=== PATIENT | male | born 1975 | race Caucasian/White ===

== ENCOUNTER 2016-06-08 19:38 | Emergency (ER) | payer BC ==
[2016-06-08 19:41] VITALS: BMI 24.9
[2016-06-08 19:45] VITALS: RESP 18
[2016-06-08 20:04] LABS: URINE BILIRUBIN NEGATIVE (NEGATIVE); URINE BLOOD SMALL (NEGATIVE); URINE GLUCOSE (UA) NEGATIVE (NEGATIVE); URINE KETONE 15 mg/dL (NEGATIVE); URINE LEUKOCYTE ESTERASE NEGATIVE Leu/uL (NEGATIVE); URINE PROTEIN NEGATIVE mg/dL (<30 mg/dL); URINE UROBILINOGEN 0.2 E.U./dL (<1 E.U./dL)
[2016-06-08] MEDS ORDERED: Morphine 2 mg/ml ISec IVP STA (20:06)
[2016-06-08 20:13] LABS: URINE APPEARANCE CLEAR (CLEAR); URINE COLOR LIGHT YELLOW (YELLOW)
[2016-06-08] MEDS ORDERED: Morphine 4 mg/ml ISec IVP STA (20:16)
[2016-06-08 20:18] LABS: URINE BACTERIA FEW (NEG); URINE WBC 0 - 2 /hpf (0-6)
[2016-06-08] MEDS ORDERED: Sodium Chloride 0.9% 1,000 ML IV STA (20:19)
--- NOTE | 2016-06-08 20:29 | ED PDOC ---
Arrival/HPI - General Historian: Patient - History of Present Illness Time/Duration: < week Symptom Course: Worsening Quality: Stabbing Severity Level: 8 <Beverley Watkins - Last Filed: 06/08/16 23:06> <Eric Tobin - Last Filed: 06/08/16 23:23> - General Chief Complaint: Back Pain Time Seen by Provider: 06/08/16 19:44 - History of Present Illness Narrative History of Present Illness (Text): 06/08/16 20:21 40 year old male with past medical history of hyperlipidemia presents to [facility] complaining of right flank pain. Patient report the flank pain, followed by bloody urine which all started on 06/02. Patient went to his PMD and was given Flomax and sent for CT scan. Patient's bloody urine resolved soon after but the pain continued. Patient's pain became worse on 06/06 where patient went to an urgent care center and received a shot of pain medication, which relieved his pain temporarily. This morning patient's pain returned. He also complains of feeling nauseous started today. Patient describes the pain as sharp pain, rates it 8/10 in intensity, radiates from right flank to right lower abdomen. Denies headache, weakness, fever, chills, shortness of breath, chest pain, vomiting, or diarrhea. (Beverley Watkins) Past Medical History - Provider Review Nursing Documentation Reviewed: Yes - Psychiatric Hx Substance Use: No <Beverley Watkins - Last Filed: 06/08/16 23:06> Family/Social History Family/Social History: Hypertension Smoking Status: n Hx Alcohol Use: No Hx Substance Use: No <Beverley Watkins - Last Filed: 06/08/16 23:06> Allergies/Home Meds <Beverley Watkins - Last Filed: 06/08/16 23:06> <Eric Tobin - Last Filed: 06/08/16 23:23> Allergies/Adverse Reactions: Allergies No Known Allergies Allergy (Verified 06/08/16 19:41) Review of Systems - Review of Systems Constitutional: Normal. absent: Fatigue, Fevers Eyes: Normal. absent: Vision Changes, Photophobia ENT: Normal. absent: Hearing Changes, TMJ Pain Respiratory: Normal. absent: SOB, Cough Cardiovascular: Normal. absent: Chest Pain, Edema, Syncope Gastrointestinal: Abdominal Pain (right flank to right lower abdominal pain) Genitourinary Male: Hematuria Musculoskeletal: Normal. absent: Back Pain Skin: Normal. absent: Rash, Pruritis Neurological: Normal. absent: Headache, Dizziness Psychiatric: Normal. absent: Anxiety, Depression <RolandWilversusi - Last Filed: 06/08/16 23:06> Physical Exam Vital Signs Reviewed: Yes Temperature: Afebrile Blood Pressure: Normal Pulse: Regular Respiratory Rate: Normal Appearance: Positive for: Non-Toxic, Uncomfortable Pain Distress: Moderate Mental Status: Positive for: Alert and Oriented X 3 - Systems Exam Head: Present: Atraumatic, Normocephalic Conjunctiva: Present: Normal Mouth: Present: Moist Mucous Membranes Nose (External): Present: Atraumatic Respiratory/Chest: Present: Clear to Auscultation, Good Air Exchange. No: Respiratory Distress, Accessory Muscle Use, Wheezes Cardiovascular: Present: Regular Rate and Rhythm, Normal S1, S2. No: Murmurs Abdomen: Present: Tenderness (Right lower quadrant) Genitourinary Male: Present: Other (right groin tenderness) Back: No: CVA Tenderness Upper Extremity: Present: Normal Inspection. No: Cyanosis, Edema Lower Extremity: Present: Normal Inspection. No: Edema Neurological: Present: GCS=15, CN II-XII Intact, Speech Normal Skin: Present: Warm, Dry, Normal Color. No: Rashes Psychiatric: Present: Alert, Oriented x 3, Normal Insight, Normal Concentration <RolandBeverley - Last Filed: 06/08/16 23:06> - Systems Exam Abdomen: Present: Normal Bowel Sounds. No: Tenderness, Distention, Peritoneal Signs, Rebound, Guarding Back: Present: Normal Inspection. No: CVA Tenderness <Eric Tobin L - Last Filed: 06/08/16 23:23> Vital Signs Temp Pulse Resp BP Pulse Ox 06/08/16 22:21 72 18 128/74 99 06/08/16 19:41 99.3 F 77 18 138/78 99 Medical Decision Making <Beverley Watkins - Last Filed: 06/08/16 23:06> <Eric Tobin - Last Filed: 06/08/16 23:23> ED Course and Treatment: 06/08/16 20:21 -IVF -Morphine, toradol -Zofran -CBC, BMP -UA, urine culture DDx: Nephrolithiasis, pyelonephritis, 06/08/16 20:56 Elevated WBC 15.7, Cr 1.[address] Jaspal grimm Attending discussed case with Dr. Shay, recommended patient to follow up as outpatient on . 06/08/16 21:16 Patient's pain relieved with pain medications. Testicular ultrasound ordered to evaluate fluid density found on CT (Beverley Watkins) 06/08/16 21:25 40 yo male presents to the ED with r/o flank pain. No fever. CT completed on 06/04 showed kidney stones as documented. Agree with resident note. Exam: No CVAT. No abdominal tenderness, guarding, rebound. BS x4. No groin tenderness or mass. No testicular mass or tenderness. No penile tenderness. Optical Manager Dr. Lowery. IMPRESSION: Flank Pain with already diagnosed Kidney Stone -- Labs -- CT reviewed -- UA -- Pain controlled -- Ultrasound of testicular Discussed case with Dr. Shay who I reviewed labs, CT and UA results with. He recommends starting patient on Flomax and Bactrim and pain control and have him follow up with him as an outpatient. 06/08/16 22:[address] Krishnamurthy to f/u ultrasound, Xray, reevaluate and disposition. 06/08/16 23:21 [facility] Preliminary Radiology Report Call: [phone] assistance Online chat: [email or web address] Patient Name: PINKY KIM Institution Name: [place] [address] Study Type: US SCROTUM & CONTENTS Ordered As: US TESTES DUPLEX COMPLETE Date of Dictation: 08 Jun 2016 EDT Date of Exam: 08 Jun 2016 EDT Account Number: Patient : [id number] Patient Location: ED Director Call: Referring Physician: Eric TOBIN This interpretation is based upon the receipt of 57 images. DIRECTOR WOMEN (QA) DISCREPANCY? If there is a discrepancy between the preliminary and final interpretation, please notify [employer] via [email or web address]. If you do not have access to our QA portal, call our QA team at [phone] CONFIDENTIALITY STATEMENT This report is intended only for the use of the referring physician, and only in accordance with law, If you received this in error, call [phone] Page 1 of 1 EXAM: US Scrotum CLINICAL HISTORY: 40 years old, male; Abnormal findings; Abnormal imaging studies, genitourinary organs; Patient HX: Fluid collection rt groin oc ct; Additional info: Please evaluate right groin fluid finding on 06/04 TECHNIQUE: Real-time ultrasound of the scrotum with color Doppler and image documentation. EXAM DATE/TIME: 06/08/2016 9:13 PM COMPARISON: No relevant prior studies available. FINDINGS: 5 mm right epididymal head cyst/spermatocele. Small right hydrocele.Both testes are symmetric in size and homogeneous in echotexture, with appropriate flow, and no active evidence of torsion. Small left hydrocele. 3.5 mm left epididymal head cyst/spermatocele. No right inguinal hernia. No drainable collections detected. No inguinal fluid collection. IMPRESSION: 1. No torsion. 2. Small bilateral hydroceles and epididymal head cysts/spermatoceles. 3. I suspect that the right inguinal fluid collection seen on CT performed is secondary to the right-sided hydrocele seen on this exam. 06/08/16 23:21 Patient also has a hydrocele noted. Pain is still controlled. He is well hydrated and tolerating PO fluids. He understands f/u instructions to f/u with Dr. Shay on . He was given a strainer. (Eric Tobin) - Lab Interpretations Lab Results: 06/08/16 20:28 06/08/16 20:28 Lab Results 06/08/16 20:28: WBC 15.7 H, RBC 5.45, Hgb 17.1, Hct 47.0, MCV 86.2, MCH 31.4, MCHC 36.4, RDW 12.5, Plt Count 210, MPV 10.1, Gran % 81.1 H, Lymph % (Auto) 11.4 L, Kendall % (Auto) 7.0 H, Eos % (Auto) 0.4 L, Baso % (Auto) 0.1, Gran # 12.68 H, Lymph # 1.8, Kendall # 1.1 H, Eos # 0.1, Baso # 0.02, Sodium 135, Potassium 4.4, Chloride 96 L, Carbon Dioxide 26, Anion Gap 17, BUN 16, Creatinine 1.6 H, Est GFR ( Amer) 58, Est GFR (Non-Af Amer) 48, Random Glucose 92, Calcium 9.9 06/08/16 19:50: Urine Color Light yellow, Urine Appearance Clear, Urine pH 6.0, Ur Specific Dunlo <= 1.005, Urine Protein Negative, Urine Glucose (UA) Negative, Urine Ketones 15 H, Urine Blood Small H, Urine Nitrate Negative, Urine Bilirubin Negative, Urine Urobilinogen 0.2, Ur Leukocyte Esterase Negative , Urine RBC 2 - 5, Urine WBC 0 - 2, Ur Epithelial Cells None, Urine Bacteria Few , Urine Other Fiber - RAD Interpretation Narrative RAD Interpretations (Text): CT abdomen & pelvis performed on 06/04/16 Impression: 4mm proximal ureteral calculus with mild proximal hydroureteronephrosis. Additional punctate approximately 1mm nonobstructing right renal calculus. No hydronephrosis or obstructing renal calculus of the left kidney. Nonobstructing 2mm left renal calculus. 2.5 x 4.5cm fluid density within the right groin, uncertain etiology. Recommended testicular ultrasound for further evaluation. (Beverley Watkins) Radiology Orders: 06/08/16 21:13 TESTES DUPLEX COMPLETE [US] Stat 06/08/16 21:14 ABDOMEN (FLAT PLATE) 1VIEW [RAD] Stat - Medication Orders Current Medication Orders: Discontinued Medications Sodium Chloride (Sodium Chloride 0.9%) 1,000 mls @ 999 mls/hr IV .Q1H1M STA Stop: 06/08/16 21:19 Last Admin: 06/08/16 20:33 Dose: 999 MLS/HR eMAR Start Stop Document 06/08/16 20:33 MR (Rec: 06/08/16 20:33 MR [facility][id number]) Intravenous Solution Start Date 06/08/16 Start Time 20:33 End Date 06/08/16 End time 21:33 Total Infusion Time 60 Ketorolac Tromethamine (Toradol) 30 mg IVP STAT STA Stop: 06/08/16 20:18 Last Admin: 06/08/16 20:33 Dose: 30 MG IVP Administration Document 06/08/16 20:33 MR (Rec: 06/08/16 20:33 MR [facility][id number]) Charges for Administration # of IVP Administrations 1 Morphine Sulfate (Morphine) 4 mg IVP STAT STA Stop: 06/08/16 20:17 Last Admin: 06/08/16 20:32 Dose: 4 MG MAR Pain Assessment Document 06/08/16 20:32 MR (Rec: 06/08/16 20:33 [facility][id number]) Pain Reassessment Is this a pain reassessment? No Sleep Is patient sleeping during reassessment? No Presence of Pain Presence of Pain Yes Pain Scale Used Pain Scale Used Numeric Location Left, Right or Bilateral Right Upper or Lower Lower Pain Location Body Site Abdomen Description Description Constant Intensity of Pain at present 8 Pain Behavior Guarding Restlessness Facial Grimacing Aggravating Factors ADL's Changing Position Alleviating Factors/Management Medication Techniques Alleviating Factors Medication IVP Administration Document 06/08/16 20:32 MR (Rec: 06/08/16 20:33 [facility]-[id number]) Charges for Administration # of IVP Administrations 1 Tamsulosin HCl (Flomax) 0.4 mg PO STAT STA Stop: 06/08/16 20:21 Last Admin: 06/08/16 21:09 Dose: 0.4 MG Trimethoprim/Sulfamethoxazole (Bactrim Ds Tab) 1 tab PO STAT STA PRN Reason: Protocol Stop: 06/08/16 21:25 Last Admin: 06/08/16 21:34 Dose: 1 TAB - PA / CIRCULAR KNITTER HELPER / Resident Statement /DO has examined the patient and agrees with the treatment plan. <Beverley Watkins - Last Filed: 06/08/16 23:06> Disposition/Present on Arrival - Present on Arrival Any Indicators Present on Arrival: No History of DVT/PE: No History of Uncontrolled Diabetes: No Urinary Catheter: No History of Decub. Ulcer: No History Surgical Site Infection Following: None - Disposition Disposition Time: 23:09 <Beverley Watkins - Last Filed: 06/08/16 23:06> - Present on Arrival Any Indicators Present on Arrival: No - Disposition Have Diagnosis and Disposition been Completed?: Yes Disposition Time: 23:00 Patient Plan: Discharge <Eric Tobin - Last Filed: 06/08/16 23:23> - Disposition Diagnosis: Kidney stone on right side, Hydrocele Disposition: HOME/ ROUTINE Patient Problems: Current Active Problems Problem Status Diagnosed Hydrocele Acute Kidney stone on right side Acute Condition: IMPROVED Additional Instructions: Mr. Kim thank you for letting us take care of you today. Your provider was Dr. Tobin. You were treated for Renal Colic, Hydrocele. The emergency medical care you received today was directed at your acute symptoms. If you were prescribed any medication, please fill it and take as directed. It may take several days for your symptoms to resolve. Return to the Emergency Department if your symptoms worsen, do not improve, or if you have any other problems. Please contact your doctor or call one of the physicians/clinics you have been referred to that are listed on the Patient Visit Information form that is included in your discharge packet. Bring any paperwork you were given at discharge with you along with any medications you are taking to your follow up visit. Our treatment cannot replace ongoing medical care by a primary care provider (PCP) outside of the emergency department. Thank you for allowing the [email or web address] team to be part of your care today. If you had an X-Ray or CT scan: A Radiologist will review the ED reading if any change in treatment is needed we will contact you. If you had a blood, urine, or wound culture: It will take several days for the results, if any change in treatment is needed we will contact you. If you had an STI test: It will take 48 hours for the results. Please call after 1 week if you have not heard back. Prescriptions: Sulfamethoxazole/Trimethoprim [Bactrim DS 800 mg-160 mg] 1 tab PO BID #14 tab Tamsulosin [Flomax] 0.4 mg PO DAILY #20 cap oxyCODONE/Acetaminophen [Percocet 5/325 mg Tab] 1 ea PO Q6 PRN #20 tab PRN Reason: Pain, Moderate (4-7) Referrals: Ana Maria Richmond MD [Primary Care Provider] - Follow up with primary Dick Shay MD [Staff Provider] - Follow up with primary Forms: WORK NOTE
[2016-06-08 20:35] LABS: ADD MANUAL DIFF? NO
[2016-06-08 20:38] LABS: BASO # 0.02 K/mm3 (0.0-2.0); BASO % 0.1 % (0.0-3.0); EOS # 0.1 (0.0-0.7); EOS % 0.4 % (1.5-5.0); GRAN # 12.68 (1.4-6.5); GRAN % 81.1 % (50.0-68.0); LYMPH # 1.8 (1.2-3.4); LYMPH % 11.4 % (22.0-35.0); MEAN CELL VOLUME 86.2 fL (80.0-105.0); MEAN CORPUSCULAR HEMOGLOBIN 31.4 pg (25.0-35.0); MEAN CORPUSCULAR HGB CONC 36.4 g/dl (31.0-37.0); MEAN PLATELET VOLUME 10.1 fl (7.0-11.0); MONO # 1.1 (0.1-0.6); PLATELET COUNT 210 10^3/uL (120.0-450.0); RED CELL DISTRIBUTION WIDTH 12.5 % (11.5-14.5); WHITE BLOOD COUNT 15.7 10^3/ul (4.5-11.0)
[2016-06-08 20:47] LABS: CALCIUM 9.9 mg/dL (8.4-10.5); POTASSIUM 4.4 mmol/L (3.6-5.0)
[2016-06-08] MEDS ORDERED: Tmp-Smz 800 mg-160 mg DS Tab PO STA (21:24)
[2016-06-08 23:58] VITALS: BP 131/68; PULSE 61; TEMP 98.1; O2SAT 96
--- NOTE | 2016-06-09 07:09 | RAD ---
HISTORY: right kidney stone COMPARISON: CT abdomen and pelvis 06/04/2016 FINDINGS: BOWEL: Normal. No obstruction. No free air. BONES: Normal. OTHER FINDINGS: The CT referenced 4 mm proximal ureteral calculus previously registered to the right L3-4 level culinary arts instructor image from the CT. This right ureteral calculus is not appreciated on the culinary arts instructor image at that level. . This calculus likely has migrated into the right hemipelvis has no pelvic phleboliths is noted The smaller right nonobstructing renal calculus is not appreciated on this KUB. Prior CT referenced nonobstructing 2 mm left renal calculus is identified at the mid to lower pole on this KUB. IMPRESSION: The prior obstructing 4 mm right ureteral calculus has migrated into the right hemipelvis - possibly now at the the right ureterovesical junction. The tinier nonobstructing right renal calculus is not appreciated. 2 mm nonobstructing left renal calculus is identified as above sign
--- NOTE | 2016-06-09 10:40 | US ---
HISTORY: please evaluate right groin fluid finding on 06/04. Preliminary report offered by Dony ferreira TECHNIQUE: Realtime sonography through the scrotum with color and doppler flow. COMPARISON: CT noncontrast abdomen and pelvis 06/04/2016 and study performed for urolithiasis FINDINGS: RIGHT TESTICLE: Measures 3.9 x 2.0 x 3.3 cm. Normal echotexture and flow. RIGHT EPIDIDYMIS: Epididymal head measures 1.3 x 0.8 x 2.2 cm. Grossly normal flow. Tiny 5 x 4 x 4 mm right epididymal head cyst LEFT TESTICLE: Measures 4.6 x 2.1 x 3.3 cm. Normal echotexture and flow. LEFT EPIDIDYMIS: Epididymal head measures 1.2 x 0.9 x 1.7 cm. Grossly normal flow. Small left epididymal head cyst 5 x 8 x 4 mm and 3 x 2 x 3 mm HYDROCELE: Small fairly symmetrical hydroceles are noted VARICOCELE: No far inferior varicoceles within the scrotal sac noted OTHER FINDINGS: In the evaluation of the right groin, there is a tubular structure with vascularity demonstrated measuring at least 3.7 cm x 1.2 cm on this exam. A vessel with flow in it is suggested. Additionally prominent vessels are depicted in the right groin with color Doppler. No comparison left groin images are available. No definite peristalsing bowel loops were noted. IMPRESSION: The CT oval fluid like collection right lateral to the penile corpora has fluid like density. The bilateral hydroceles seen on this exam are small and symmetrical. These hydroceles, as depicted on this ultrasound exam are not felt to explain the CT large 4.4 x 2.4 cm fluid like collection suggested . It is unknown if this could relate to prominent ultraound exam without comparison left sided images. No right groin surgical clips are appreciated to suggest prior hernia repair and a potential seroma for CT At this time, no ultrasound correlate to the CT depicted fluid collection right lateral to the penile corpora is apparent . Urological follow-up/ consultation is recommended. Consider 2nd look ultrasound attention to the right and left lateral aspects of the penile corpora for further clarification . Comments: These findings and the discordant concern between imaging modalities were discussed with the ER physician Dr. Tobin on 06/09/2016 at 10: 21 a.m.. Follow-up recommended
== END 2016-06-08 23:57 | disposition home or self-care (01) ==
LOC: ED 19:38
DX: N20.0 Calculus of kidney (principal); N43.3 Hydrocele, unspecified; E78.5 Hyperlipidemia, unspecified; Z82.49 Family history of ischemic heart disease and other diseases of the circulatory system
CPT/HCPCS: 74000; 80048; 81001; 85025; 87086; 93975; 96361; 96374; 96375; 99284; J1885; J2270; J7040